=== PATIENT | female | born 1940 | race Caucasian/White ===

== ENCOUNTER 2019-12-08 17:42 | Emergency (ER) | payer MEDICARE ==
[2019-12-08] MEDS ORDERED: DIPH,PERTUS(ACELL)TETVAC-LF 0.5 ML VIAL IM ONE (18:05)
--- NOTE | 2019-12-08 18:14 | ED ---
General Adult HPI - General Chief complaint: Fall Stated complaint: Fall/head injury Time Seen by Provider: 12/08/19 17:48 Source: patient, family, EMS, RN notes reviewed, old records reviewed Mode of arrival: EMS Limitations: no limitations - History of Present Illness Initial comments: 79-year-old female presenting with mechanical fall and head injury. Patient states she tripped and fell because she was not being careful. She denies any preceding symptoms, no palpitations or chest pain. She's been eating and drinking well. No extremity weakness. Denies headache. Denies loss consciousness. She is not anticoagulated. EMS reports scalp laceration with no active bleeding. Patient is alert and oriented to time my evaluation with no complaints. She states she just wants stitches and wants to go home. - Related Data Allergies Allergy/AdvReac Type Severity Reaction Status Date / Time hydromorphone [From Dilaudid] AdvReac Hallucinati Verified 12/08/19 17:57 ons meperidine [From Demerol] AdvReac Vomiting Verified 12/08/19 17:57 morphine AdvReac Hallucinati Verified 12/08/19 17:58 ons Review of Systems ROS Statement: Those systems with pertinent positive or pertinent negative responses have been documented in the HPI. ROS Other: All systems not noted in ROS Statement are negative. 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 Absent: EOMI ENT exam: Present: normal exam Neck exam: Present: normal inspection. Absent: tenderness, meningismus Respiratory exam: Present: normal lung sounds bilaterally. Absent: respiratory distress, wheezes Cardiovascular Exam: Present: regular rate, normal rhythm GI/Abdominal exam: Present: soft. Absent: distended, tenderness, guarding, rebound Extremities exam: Present: normal inspection, normal capillary refill. Absent: pedal edema, calf tenderness Neurological exam: Present: alert, oriented X3, CN II-XII intact. Absent: motor sensory deficit Psychiatric exam: Present: normal affect, normal mood Skin exam: Present: warm, dry, intact. Absent: cyanosis, diaphoretic Course Vital Signs 12/08/19 17:48 Temperature 97.8 F Pulse Rate 79 Respiratory 16 Rate Blood Pressure 146/92 O2 Sat by Pulse 99 Oximetry Procedures - Laceration Laceration #1 Consent Obtained: verbal consent Indication: laceration Site: scalp Description: flap, avulsion Depth: arterial injury Anesthetic Used: lidocaine 1%, with epi Anesthesia Technique: local infiltration Amount (mls): 10 Pre-repair: wound explored, irrigated extensively Size of Sutures: other (Puma) Technique: simple, interrupted Complications: bleeding Patient Tolerated Procedure: well Additional Comments: 17 puma repairing a 10 cm J shaped laceration on the right parietal and occipital scalp. Medical Decision Making - Medical Decision Making 79-year-old female with myeloma presents status post fall. Described as a mechanical fall. Patient states she just wants her laceration repaired and was to go home. I did convince this patient to receive CT further risk of intracranial hemorrhage. This is negative for intracranial hemorrhage but shows concern for a left frontal ischemic stroke there is also lytic lesion noted on CT. Cervical spine is negative for fracture subluxation. Laceration is repaired and patient is eager for discharge. She does not want any further evaluation including evaluation of stroke. She denies blood work. She lives w ith her son and can be observed. She wants to follow up as an outpatient regarding any abnormality including suspicion of possible stroke. She is alert and oriented 3 with stable vitals. Disposition Clinical Impression: Fall, Concussion, Laceration of scalp Disposition: HOME SELF-CARE Condition: Fair Instructions (If sedation given, give patient instructions): Fall Prevention for Older Adults (ED), Laceration (ED), Care For Your Stitches (ED), Concussion (ED) Additional Instructions: Please return for staple removal in 14 days. Please monitor for signs of concussion, watch wound for bleeding, or signs of infection. Is patient prescribed a controlled substance at d/c from ED?: No Referrals: Lashell Lovelace MD [Primary Care Provider] - 1-2 days Time of Disposition: 19:43
--- NOTE | 2019-12-08 18:38 | CT ---
EXAMINATION TYPE: CT brain amanda coreas con DATE OF EXAM: 12/08/2019 COMPARISON: None HISTORY: Fall today with injury. CT DLP: 1469.8 mGycm, Automated exposure control for dose reduction was used. CONTRAST: Patient injected with 0 mL of Isovue 300. CT of the brain is performed utilizing 3 mm thick sections through the posterior fossa and 3 mm thick sections through the remaining calvarium. Study is performed within 24 hours of arrival to the hospital. There is diffuse soft tissue swelling extending from the frontal region through the right temporal an d parietal regions. No underlying fracture is evident. There is some subcutaneous emphysema in this r egion. Note is made of a large lytic defect within the left occipital region. There is a hypodense area within the subcortical white matter of the left frontal lobe lateral to the left basal ganglion. Subcortical infarct could be considered at this level. This is of indeterminant age. Some mild scattered periventricular white matter changes are present. This is nonspecific and c ould be related to microvascular ischemic change. No abnormal hyperdensity is present to suggest an acute intracranial hemorrhage. No mass lesion is evident. Ventricles and sulci are appropriate for the patient age. Paranasal sinuses and mastoid air cells within the [id number] are clear. IMPRESSIONS: 1. Clinical consideration for a subcortical ischemic area of indeterminant age of the posterior left frontal lobe 2. Mild periventricular white matter chronic appearing ischemic changes. 3. Extensive subcutaneous swelling from the frontal through the right parietal temporal regions. 4. There is a lytic type defect in the left occipital calvarium. CT cervical spine. COMPARISON: None CT of the cervical spine is performed in the axial plane at 2 mm thick sections. Reconstructed image s in the coronal, and sagittal plane are reviewed on the computer. No acute fractures are evident. Vertebral body alignment is normal. There is loss of disc height at C5-C6 C6-7. Large posterior endplate spurring is present at C5-6. Pos terior spinal lamellar line appears intact. Prevertebral space appears normal. Vertebral body heights are preserved. No spinal canal stenosis is evident. Foraminal stenosis from uncovertebral joint hypertrophy is noted in the cervical spine. IMPRESSIONS: 1. No acute osseous abnormality.
[2019-12-08 20:09] VITALS: BP 130/84; PULSE 88; RESP 18; TEMP 98.7
== END 2019-12-08 20:07 | disposition home or self-care (01) ==
LOC: EC 17:42
DX: S01.01XA Laceration without foreign body of scalp, initial encounter (principal); S06.0X0A Concussion without loss of consciousness, initial encounter; I10 Essential (primary) hypertension; C90.00 Multiple myeloma not having achieved remission; Z88.5 Allergy status to narcotic agent; W01.0XXA Fall on same level from slipping, tripping and stumbling without subsequent striking against object, initial encounter; Y92.009 Unspecified place in unspecified non-institutional (private) residence as the place of occurrence of the external cause
CPT/HCPCS: 12004; 70450; 72125; 99284